=== PATIENT | male | born 1960 | race Caucasian/White ===

== ENCOUNTER → 2019-05-29 | Day surgery (SDC) | payer OTHER ==
[~2019-05-29] MED LIST: ASPIRIN81 MG PO; DILTIAZEM PO; DIOVAN80 MG PO; FENTANYL CITRATE/PF 100MCG/2 ML INJ ONE; GLUCAGON FOR INJ 1 MG VIAL ONE; HCTZ 25 MG PO; HYOSCYAMINE 0.125 MG TAB ONE; METFORMIN HCL500 M3; MIDAZOLAM HCL 5MG/ML 2ML VIAL ONE; NIACIN FLUSH F1 EACH PO; POTASSIUM CHLO20 ME1 PO; PROPOFOL IV EMULSION 10 MG/ML 50 ML VIAL ONE; VITAMIN D35000 UNIT PO; Z.0.GLIMEPIRIDE4 MG PO; Z.0.INDOMETHACIN50 M PO; Z.0.SIMVASTATIN10 MG PO; [UNRECOGNIZED DRUG - OTHER] PO
[2019-05-29 12:50] VITALS: BP 112/64
--- NOTE | 2019-05-29 13:26 | Operative Report ---
DATE OF PROCEDURE: 05/29/2019 SURGEON: Garth Rogers MD PROCEDURE: Colonoscopy with polypectomy. INDICATION FOR COLONOSCOPY: Surveillance colonoscopy, personal history of colon polyps. MEDICATIONS: The patient was done under MAC, please see anesthesiologist's note. PROCEDURE IN DETAIL: With the patient in left lateral decubitus position, the flexible fiberoptic Olympus colonoscope was inserted into the rectum with ease and advanced all the way to the cecum. The scope was then withdrawn slowly. Of note, the patient with scattered diverticular disease throughout, probably more prominent in the left colon. One polyp was cold biopsied in the transverse colon, one polyp was hot biopsied in the descending colon and one polyp was hot biopsied in the sigmoid colon and polypectomy site was hemoclipped. The rectum appeared to be within normal limits. The scope was then retroflexed into the distal rectum and small internal hemorrhoids were noted, none of which was actively bleeding. The scope was then straightened out, it was subsequently withdrawn. The patient tolerated procedure well. IMPRESSION: 1. Diverticulosis. 2. Transverse colon polyp, cold biopsied. 3. Descending colon polyp, hot biopsied. 4. Sigmoid colon polyp, hot biopsied and site were hemoclipped. 5. Internal hemorrhoids, none actively bleeding. PLAN: Follow up histology. Initiate high-fiber, low-fat diet. Initiate high-fiber supplement. The patient might benefit from a followup colonoscopy in 3 to 5 years. Garth Rogers MD [facility] [place] /[id number] cc: Laura Del aVlle MD
== END | disposition home or self-care (01) ==
LOC: OR 07:12
PROVIDERS: ATTEND Internal Medicine Gastroenterology
DX: D12.3 Benign neoplasm of transverse colon (principal); K57.30 Diverticulosis of large intestine without perforation or abscess without bleeding; K64.8 Other hemorrhoids; G47.33 Obstructive sleep apnea (adult) (pediatric); E11.9 Type 2 diabetes mellitus without complications; I10 Essential (primary) hypertension; Z88.8 Allergy status to other drugs, medicaments and biological substances; Z01.810 Encounter for preprocedural cardiovascular examination; Z79.82 Long term (current) use of aspirin; Z79.84 Long term (current) use of oral hypoglycemic drugs
CPT/HCPCS: 36415; 45380; 45384; 82948; 93005; J1610; J2250; J2704; J3010; 45378